=== PATIENT | female | born 1990 | race Caucasian/White ===

== ENCOUNTER 2022-12-11 23:13 | Emergency (ER) | payer SELFPAY ==
[2022-12-11 23:17] VITALS: BP 129/79; PULSE 88; RESP 18; TEMP 36.6; O2SAT 99; BMI 31.5
--- OUTSIDE RECORDS SUMMARY | 2022-12-11 23:45 | XMS_ITS | Continuity of Care Document ---
Author Name Unknown Organization [facility] ter Address [address] [place] [id number]- Care Team Providers Care Farm Loan Representative Name Role Phone Not on Staff, PCP Primary Care Physician Unavail able Encounter [facility] [place] Date(s): 03/19/22 - 04/08/[address] [address]- Attending Physician: Rod SALOMON, Jer Noel Referring Physician: Rocio Julien CNM Allergies, Adverse Reactions, Alerts Substance Reaction Severity Status penicillin 1 Active 1Hives Immunizations Given and Recorded Vaccine Date Status Refusal Reason Measles/Mumps/Rubella Virus Vaccine 03/22/22 Given Medications acetaminophen 325 mg oral tablet 650 mg, By Mouth, Every 4 hours, PRN, (1-3), may give 325mg per patient preference and re-dose [id number] within 4 hours, if needed. Patient should only receive a total of 650mg of Acetaminophen every 4 hours., Refills 0, Maintenance, Pain , Mild, 0... Start Date: 03/22/22 Status: Ordered Albuterol (Eqv-ProAir HFA) Inhalation, Every 6 hours, 0 Refills, Maintenance, 03/20/22 16:37:00 EDT, Partial fill upon patientrequest if the prescription is for a schedule II opioid drug. Start Date: 03/20/22 Status: Ordered Docusate Sodium Capsule 100 mg, 1, capsule, By Mouth, 2 times a day, PRN, Refills 0, Maintenance, Constipation, 03/22/22 15:42:00 EDT, Partial fill upon patient request if the prescription is for a schedule II opioid drug. Start Date: 03/22/22 Status: Ordered ibuprofen 800 mg oral tablet 800 mg, 1, tablet, By Mouth, Every 8 hours, PRN, (4-6), may give 400mg per patient preference and re-dose with 400mg within 8 hours if needed. Patient should only receive a total of 800mg of Ibuprofen every 8 hours., Refills 0, Maintenance, Pain , M... Start Date: 03/22/22 Status: Ordered PNV By Mouth, Daily, 0 Refills, Maintenance, 03/20/22 16:35:00 EDT, Partial fill upon patient request if the prescription is for a schedule II opioid drug. Start Date: 03/20/22 Status: Ordered Problem List Condition Effective Dates Status Health Status Inform ant Obese class II(Confirmed) Active Care Team Personnel Name: Not on Staff, PCP
--- OUTSIDE RECORDS SUMMARY | 2022-12-11 23:45 | XMS_ITS | Continuity of Care Document ---
Author Name Unknown Organization [facility] ter Address [address] [place] [id number]- Care Team Providers Care Leasing Associate Name Role Phone Not on Staff, PCP Primary Care Physician Unavail able Encounter [facility] [place] Date(s): 03/20/22 - 03/22/[address] [address] Discharge Disposition: A-D/C Home Attending Physician: Katharine Cotter DO Admitting Physician: Katharine Cotter DO Referring Physician: Katharine Cotter DO Allergies, Adverse Reactions, Alerts Substance Reaction Severity Status penicillin 1 Active 1Hives Immunizations Given and Recorded Vaccine Date Status Refusal Reason Measles/Mumps/Rubella Virus Vaccine 03/22/22 Given Medications acetaminophen 325 mg oral tablet 650 mg, By Mouth, Every 4 hours, PRN, (1-3), may give 325mg per patient preference and re-dose [id number] within 4 hours, if needed. Patient should only receive a total of 650mg of Acetaminophen every 4 hours., Refills 0, Maintenance, Pain , Mild, 0... Start Date: 03/22/22 Status: Ordered Acetaminophen Tablet 650 mg, Tablet, By Mouth, Every 4 hours, PRN for Pain , Mild, (1-3), may give 325mg per patient preference and re-dose with 325mg within 4 hours, if needed. Patient should only receive a total of 650mg of Acetaminophen every 4 hours., Routine, 03/21... Start Date: 03/21/22 Stop Date: 03/23/22 Status: Discontinued Albuterol (Eqv-ProAir HFA) Inhalation, Every 6 hours, [...] , M... Start Date: 03/22/22 Status: Ordered Ibuprofen Tablet 800 mg, Tablet, By Mouth, Every 8 hours, PRN for Pain , Moderate, (4-6), may give 400mg per patientpreference and re-dose with 400mg within 8 hours if needed. Patient should only receive a total of 800mg of Ibuprofen every 8 hours., Routine, ... Start Date: 03/21/22 Stop Date: 03/23/22 Status: Discontinued PNV By Mouth, Daily, 0 Refills, Maintenance, 03/20/22 16:35:00 EDT, Partial fill upon patient request if the prescription is for a schedule II opioid drug. Start Date: 03/20/22 Status: Ordered Problem List Condition Effective Dates Status Health Status Inform ant Obese class II(Confirmed) Active Vital Signs Most recent to oldest [Reference Range]: 1 2 3 4 Height 157 cm (03/22/22 8:30 AM) 157 cm (03/22/22 12:01 AM) 157 cm (03/21/22 4:00 PM) Weight 91 kg (03/20/22 4:29 PM) Oxygen Saturation [94-100 %] 97 % (03/22/22 8:30 AM) 98 % (03/21/22 4:00 PM) 97 % (03/21/22 2:00 AM) Pulse Rate [55-90 bpm] 66 bpm (03/22/22 8:30 AM) 82 bpm (03/22/22 12:01 AM) 78 bpm (03/21/22 4:00 PM) Body Mass Index [18.5-24.99] 36.92 *>HHI* (03/20/22 4:29 PM) Blood Pressure [90-138/55-84 mm Hg] 124/61mm Hg (03/22/22 1:54 PM) 137/80mm Hg (03/22/22 11:18 AM) 146/70mm Hg *H* (03/22/22 8:30 AM) Respiratory Rate [16-30 br/min] 14 br/min *L* (03/22/22 8:30 AM) 18 br/min (03/22/22 12:01 AM) 18 br/min (03/21/22 11:39 PM) 18 br/min (03/21/22 11:39 PM) Temperature [96.8-100.4 DegF] 98.7 DegF (03/22/22 8:30 AM) 98.1 DegF (03/22/22 12:01 AM) 97.9 DegF (03/21/22 4:00 PM) Mode of Delivery (Oxygen) Room air (03/22/22 8:30 AM) Blood pressure sites Arm, right (03/22/22 1:54 PM) Arm, right (03/22/22 11:18 AM) Arm, right (03/22/22 8:30 AM) Temperature Route Oral (03/22/22 8:30 AM) Oral (03/22/22 12:01 AM) Oral (03/21/22 8:30 AM) Dry Weight 91 kg (03/20/22 4:29 PM)
--- OUTSIDE RECORDS SUMMARY | 2022-12-11 23:45 | XMS_ITS | Continuity of Care Document ---
Author Name [facility] Address [address] [place] [address], [address], [place] [address]- Care Team Providers Care Service Station Manager Name Role Phone Gretchen SALOMON, Jordy Rodriguez Primary Care Physician [phone] Encounter [facility] [place] Date(s): 07/15/21 - 08/14/21 [facility] [address] [place] [address], [address] [place], [place] [address]
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
== END 2022-12-12 00:08 | disposition home or self-care (01) ==
PROVIDERS: Emergency Provider Emergency Medicine
DX: S00.93XA Contusion of unspecified part of head, initial encounter (principal); V43.52XA Car driver injured in collision with other type car in traffic accident, initial encounter; Y93.9 Activity, unspecified; Y92.410 Unspecified street and highway as the place of occurrence of the external cause; Y99.9 Unspecified external cause status
CPT/HCPCS: 99282